=== PATIENT | female | born 1995 | race Caucasian/White ===

== ENCOUNTER 2023-07-02 06:07 | Inpatient (IN) | payer BC, SELFPAY ==
[2023-07-02] VITALS (41 sets, daily range): BP systolic 102–161; BP diastolic 53–129; PULSE 66–117; RESP 14–21; TEMP 36.2–37.1; O2SAT 95–100; BMI 32.5
[2023-07-02 06:43] LABS: Basophils Percent Auto 0.4 % (0.2-1.2); Eosinophils Absolute Auto 0.1 K/mm3 (0-0.3); Eosinophils Percent Auto 1.2 % (0-4.4); Hematocrit 38.2 % (37.0-47.0); Hemoglobin 11.8 g/dL (12.0-15.0); Immature Granulocyte Absolute 0.03 K/mm3 (0.00-0.031); Immature Granulocyte Percent A 0.3 % (0-0.5); Lymphocytes Absolute Auto 2.31 K/mm3 (0.9-3.2); Lymphocytes Percent Auto 24.5 % (18.3-44.2); Mean Corpuscular HGB Conc 30.9 g/dl (32-36); Mean Corpuscular Hemoglobin 26.2 pg (26-34); Mean Corpuscular Volume 84.7 fl (80-100); Mean Platelet Volume 10.7 fl (7.4-10.4); Monocytes Percent Auto 10.1 % (2.6-8.5); Neutrophils Percent Auto 63.5 % (45.5-73.1); Platelet Count Result 252 k/mm3 (150-375); Red Blood Count 4.51 M/mm3 (4.2-5.4); Red Cell Distribution Width 13.5 % (11.5-14.5); White Blood Count 9.4 K/mm3 (4.5-10.0)
[2023-07-02] MEDS: LACTATED RINGERS 1,000 ML 125 ML IV CONT (06:51)
--- NOTE | 2023-07-02 06:53 | ADMGEN ---
This patient, Saundra Petty, was admitted to Labor/Delivery/Recovery 120-00. Patient/family oriented to hospital policies and general routines including ID bracelet, bed and alarms, visiting hours, pain management, procedures, bathroom and other care routines, personal items, smoking policy, room service/diet, and visiting hours. Information on how to activate the Rapid Response Team has been discussed. Patient/Family are encouraged to report perceived risks to care and to ask questions if they do not understand what they are told or what they should do.
--- NOTE | 2023-07-02 07:17 | WPDANESEPPF ---
Anes - Initial Pre Proc Eval Procedure: Operation Date: 07/02/23 07:30 Proposed Procedures p Primary Section - Shraddha Richardson MD Date/Time: 07/02/23 07:17 Surgeon: Shraddha Richardson MD Pre Op Diagnosis: Induction of Labor Patient Data Age: 28 Gender: F Height: 1.63 m Weight: 86 kg Last Vital Signs Temp 36.3 C L 07/02/23 07:09 Pulse 93 07/02/23 07:16 BP 118/80 07/02/23 07:16 O2 Del Method Room Air 07/01/23 20:00 Allergies Allergy/AdvReac Type Severity Reaction Status Date / Time No Known Allergies Allergy Verified 07/02/23 06:49 Home Medications Medication Instructions Recorded Confirmed Type fiber 1 cap PO DAILY 06/10/23 07/02/23 History levothyroxine 25 mcg tablet 25 mcg PO DAILY 06/10/23 07/02/23 History prenat.vits,kerri,isy-[id number]-szuec 1 tablet PO DAILY 06/10/23 07/02/23 History Laboratory Tests 07/02/23 06:39 WBC 9.4 K/mm3 (4.5-10.0) RBC 4.51 M/mm3 (4.2-5.4) Hgb 11.8 L g/dL (12.0-15.0) Hct 38.2 % (37.0-47.0) MCV 84.7 fl (80-100) MCH 26.2 pg (26-34) MCHC 30.9 L g/dl (32-36) RDW 13.5 % (11.5-14.5) Plt Count 252 k/mm3 (150-375) MPV 10.7 H fl (7.4-10.4) Immature Gran % (Auto) 0.3 % (0-0.5) Neut % (Auto) 63.5 % (45.5-73.1) Lymph % (Auto) 24.5 % (18.3-44.2) [place] % (Auto) 10.1 H % (2.6-8.5) Eos % (Auto) 1.2 % (0-4.4) Baso % (Auto) 0.4 % (0.2-1.2) Lymph # (Auto) 2.31 K/mm3 (0.9-3.2) [place] # (Auto) 1.0 H K/mm3 (0.1-0.6) Eos # (Auto) 0.1 K/mm3 (0-0.3) Baso # (Auto) 0.0 K/mm3 (0.0-0.1) Abs Immat Gran (auto) 0.03 K/mm3 (0.00-0.031) Absolute Neuts (auto) 6.0 K/mm3 (1.3-6.7) Absolute Nucleated RBC 0.0 K/mm3 (0.0-0.012) Nucleated RBC % 0.0 % (0.0-0.2) RPR Pending Patient hx anesthesia problems: none Family hx anesthesia problems: none Results Review: All pre-operative results and documents have been reviewed as part of the pre-operative evaluation. [facility] Past Medical History Medical History (Updated 07/02/23 @ 07:17 by Matti Elliott MD) Breech presentation Family History Family History Grandparent Family history of lung cancer Other Family history of malignant neoplasm of breast Family history of sleep apnea Social History Social History Smoking status: Never smoker Second hand tobacco smoke exposure: Yes Alcohol intake: never Substance use: never Lack of Transportation: No Lack of Food: Never True Current Housing: I Have Housing Concerned About Future Housing: No Difficulty Paying Gas/Electric Bills: No Difficulty Paying for Meds: No Currently Unemployed: No Education: Master's Degree or Higher Difficulty w/ Childcare or Family Care: No Spiritual care concerns: No Anes - Eval Final PreProcedure Day of Procedure 07/02/23 07:17 Patient weight: overweight Heart: regular rate and rhythm Lungs: clear to auscultation Airway: Mallampati scale class II Neurological: alert and oriented Last oral intake: >/= 8 hours ASA classification: II Emergent: no Anesthetic plan: proceed Anesthesia type and monitoring: regional spinal and standard monitoring Results Review: All pre-operative results and documents have been reviewed as part of the pre-operative evaluation. Informed Consent: The patient's anesthetic plan and its attendant risks and benefits were discussed with the patient/family/POA. Questions were solicited and answers provided to the satisfaction of the patient/family/POA.
[2023-07-02] MEDS: ceFAZolin 2 GM/D5W 50 ML 2 GM/50 ML BAG IVPB (08:02)
--- NOTE | 2023-07-02 08:02 | PM.IMHP ---
H&P: HPI History of Present Illness Date/Time: 07/02/23 08:02 Chief Complaint: Term Narrative: 28-year-old primipara at term with a Fetus in the breech presentation. We have agreed to perform delivery. She understands risks. She understands that injuries may occur over the result in hospitalization, more severe and severe illness. She understands risk infection. She denies any nausea, vomiting, fever, chills. She denies any chest pain or shortness of breath was denies any current contractions or loss of fluid. Review of Systems Review of Systems: All systems reviewed & are unremarkable except as noted in HPI and below Constitutional: Constitutional: Denies chills, Denies fatigue, Denies fever(s) and Denies weakness Eyes: Eyes: Denies blurry vision, Denies change in vision, Denies loss of peripheral vision, Denies loss of vision, Denies other visual disturbances and Denies eye pain ENT: Denies vertigo, Denies dizziness, Denies hearing loss, Denies mouth pain, Denies nasal obstruction, Denies neck mass and Denies neck pain Cardiovascular: Cardiovascular: Denies chest pain, Denies diaphoresis, Denies syncope, Denies leg edema and Denies dyspnea Respiratory: Respiratory: Denies chest congestion, Denies cough, Denies hemoptysis, Denies dyspnea and Denies wheezing Gastrointestinal: Gastrointestinal: Denies abdominal pain, Denies constipation, Denies diarrhea, Denies nausea and Denies vomiting Genitourinary: Genitourinary: Denies hematuria, Denies change in libido, Denies nocturia, Denies genital lesions, Denies flank pain and Denies urinary urgency Musculoskeletal: Musculoskeletal: Denies abnormal gait, Denies back pain, Denies myalgias, Denies arthralgias, Denies joint swelling, Denies muscle weakness and Denies neck pain Integumentary/Breasts: Skin/Breast: Denies swelling, Denies breast pain, Denies breast mass, Denies dry skin, Denies nipple discharge, Denies unusual bruising and Denies jaundice Neurologic: Denies Neuro-related abnormal movements, Denies Abnormal speech present, Denies abnormal gait, Denies behavioral changes, Denies confusion, Denies vertigo, Denies dizziness, Denies syncope, Denies loss of vision, Denies memory loss, Denies convulsions and Denies weakness Psychiatric: Psychiatric: Denies abnormal sleep pattern, Denies behavioral changes, Denies change in libido, Denies confusion, Denies depression, Denies anhedonia and Denies memory loss Endocrine: Endocrine: Reports no additional endocrine complaints, Denies change in libido and Denies fatigue Hematologic/Lymphatic: Hematologic/Lymphatic: Reports no additional hematologic/lymphatic complaints Allergic/Immunologic: Allergic/Immunologic: Reports no additional allergic/immunologic complaints and Denies wheezing PMFSH Past Medical History Medical History (Updated 07/02/23 @ 08:05 by Shraddha Richardson MD) Breech presentation Family History Family History Grandparent Family history of lung cancer Other Family history of malignant neoplasm of breast Family history of sleep apnea Social History Social History Smoking status: Never smoker Second hand tobacco smoke exposure: Yes Alcohol intake: never Substance use: never Lack of Transportation: No Lack of Food: Never True Current Housing: I Have Housing Concerned About Future Housing: No Difficulty Paying Gas/Electric Bills: No Difficulty Paying for Meds: No Currently Unemployed: No Education: Master's Degree or Higher Difficulty w/ Childcare or Family Care: No Spiritual care concerns: No Meds Home Medications and Allergies Home Medications Medication Instructions Recorded Confirmed Type fiber 1 cap PO DAILY 06/10/23 07/02/23 History levothyroxine 25 mcg tablet 25 mcg PO DAILY 06/10/23 07/02/23 History prenat.vits,kerri,bll-ecyd-dhqfg 1 tablet
--- NOTE | 2023-07-02 08:05 | WPDHPUPDATE1 ---
History and Physical Update Update Date/Time: 07/02/23 08:05 History and Physical has been reviewed, including an updated exam of the patient. There are NO changes in the patient's condition. Risks, benefits, and alternatives have been discussed and questions answered. Patient agrees to proceed with procedure.
[2023-07-02] MEDS: KETOROLAC 30 MG/ML VIAL (*BKC) IV PUSH ×2 (08:33→18:45)
--- NOTE | 2023-07-02 09:26 | W.PM.PROC2 ---
Procedure Note - Detailed Date of Procedure 07/02/23 Pre-op Diagnosis Breech presentation, term Post-op Diagnosis Same Procedure Performed Low-transverse section Surgeon Shraddha Richardson MD Anesthesia Spinal Indications breech presentation Findings Normal gestational maternal anatomy, average size , normal Apgars. Description of Procedure The patient was taken the operating room. She was prepped and draped in dorsal supine position with a leftward tilt. This was done after spinal anesthetic was applied. A low-transverse skin incision was made and carried down till of the fascia with the knife. The fascial incision was made with the knife. The fascial incision was extended laterally with Lopez scissors. The fascia was tented upward superiorly and inferiorly the rectus muscles were dissected off bluntly. The rectus muscles were the midline. The preperitoneal fat and peritoneum were dissected open bluntly at the superior aspect of the rectus muscles. The peritoneal incision was extended superior and inferior with good position of bladder. The uterine incision was made with a scalpel down to the level of the amniotic cavity. The amniotic cavity was entered bluntly. The infant was delivered. The cord was clamped and cut and the was handed off to waiting pediatric staff. Cord bloods were obtained. The placenta was removed manually. The uterus was exteriorized. The uterus was cleared of all clots, debris and membranes. The uterus was closed in 0 Vicryl running lock fashion. An imbricating over a was placed along the incision line as well. The uterus was returned to the abdomen. The gutters were cleared of all clots and debris. The fascia was closed with 0 Vicryl running fashion. The subcutaneous tissue was irrigated pinpoint bleeders were cauterized. The skin was closed with subcuticular absorbable cami. The skin incision line was covered with glue. The patient tolerated the procedure well. She has taken recovery room in stable condition. Sponge lap and needle counts were correct x2. Estimated Blood Loss -475.0 Urine Output -100.0 Complications No immediate complications Condition Stable Disposition PACU
[2023-07-02] MEDS: OXYTOCIN 30 UNITS/NS 500 ML 30 UNITS/500 ML BAG 125 UNITS IV CONT (10:30)
--- NOTE | 2023-07-02 12:27 | PC.NURSE ---
1115- Attempted to call report to unit. No beds available on unit at this time. Patient is resting comfortably.No signs of PP hemorrhage. Tolerating fluid intake well. Will continue to monitor on current unit until bed becomes available.
--- NOTE | 2023-07-02 12:58 | PC.NURSE ---
Patient transferred to post room #287 via (stretcher ). Support person present. Oriented to unit, room, information board, rooming in, admission packet and security measures. Patient verbalizes understanding.
[2023-07-02] MEDS: DOCUSATE SODIUM 100 MG CAPSULE PO (14:12)
[2023-07-02] MEDS: HYDROcodone/acetaminophen (*CRX) 5-325 MG TABLET 1 TAB PO (14:12)
[2023-07-02 14:19] LABS: Rapid Plasma Reagin Non-Reactive (NonReactive)
[2023-07-02] MEDS: DEXTROSE 5%/0.45% SOD CHL 1,000 ML 125 ML IV CONT (15:48)
[2023-07-02] MEDS: IBUPROFEN 600 MG TABLET PO (18:46)
[2023-07-03] MEDS: HYDROcodone/acetaminophen (*CRX) 10-325 MG TABLET 1 TAB PO ×4 (05:13→19:06)
[2023-07-03] MEDS: IBUPROFEN 600 MG TABLET PO ×2 (05:13→14:53)
[2023-07-03 05:14] LABS: Basophils Percent Auto 0.3 % (0.2-1.2); Eosinophils Absolute Auto 0.1 K/mm3 (0-0.3); Eosinophils Percent Auto 0.8 % (0-4.4); Hemoglobin 9.2 g/dL (12.0-15.0); Immature Granulocyte Absolute 0.08 K/mm3 (0.00-0.031); Immature Granulocyte Percent A 0.7 % (0-0.5); Lymphocytes Absolute Auto 2.49 K/mm3 (0.9-3.2); Lymphocytes Percent Auto 20.3 % (18.3-44.2); Mean Corpuscular HGB Conc 30.7 g/dl (32-36); Mean Corpuscular Hemoglobin 26.6 pg (26-34); Mean Corpuscular Volume 86.7 fl (80-100); Mean Platelet Volume 10.9 fl (7.4-10.4); Monocytes Absolute Auto 1.2 K/mm3 (0.1-0.6); Monocytes Percent Auto 9.7 % (2.6-8.5); Neutrophils Absolute Auto 8.4 K/mm3 (1.3-6.7); Neutrophils Percent Auto 68.2 % (45.5-73.1); Platelet Count Result 187 k/mm3 (150-375); Red Blood Count 3.46 M/mm3 (4.2-5.4); Red Cell Distribution Width 13.7 % (11.5-14.5); White Blood Count 12.3 K/mm3 (4.5-10.0)
[2023-07-03] MEDS: LEVOTHYROXINE SODIUM 25 MCG TABLET PO (06:57)
[2023-07-03 07:05] VITALS: BP 107/64; PULSE 96; RESP 16; TEMP 36.4; O2SAT 97
--- NOTE | 2023-07-03 08:39 | WPDANLDPN2 ---
Anes-Prog Note L&D Date/Time: 07/03/23 08:39 Comfortable throughout: section Neuraxial method: spinal Epidural/Spinal procedure site: clean & non-tender Neuro status: Neuro function grossly intact. Cardiovascular status: normal Respiratory status: normal Airway patency: baseline Mental status: baseline Post-Op hydration status: normal Vital Signs: Last Vital Signs Temp 36.4 C 07/03/23 07:05 Pulse 96 07/03/23 07:05 Resp 16 07/03/23 07:05 BP 107/64 07/03/23 07:05 Pulse Ox 97 07/03/23 07:05 O2 Del Method Room Air 07/03/23 07:05 Pain score (VAS): 3 I/O: Intake & Output 07/02/23 07/03/23 07/03/23 23:59 07:59 15:59 Intake Total 1000 100 Output Total 1550 825 Balance -550 -725 Post-procedural complaints: none Patient feedback: Patient satisfied with anesthetic care.
--- NOTE | 2023-07-03 08:40 | WPDANLDNPN2 ---
Anes-Prog Note L&D-Neuraxial Date/Time: 07/03/23 08:40 Opiod-related complaints: none Patient feedback: Patient satisfied with post-operative pain management.
--- NOTE | 2023-07-03 08:41 | P.PNOB_ITS ---
OB - PN: Subj Subjective Date/time seen: 07/03/23 08:41 Interval history: POD#1 s/p PLTCS for breech Doing well, passing flatus No nausea or vomiting Awaiting spontaneous void OB - PN: Obj Data Labs 07/03/23 04:58 Labs: Laboratory Results - last 24 hr 07/02/23 07/03/23 06:39 04:58 WBC 12.3 H RBC 3.46 L Hgb 9.2 L Hct 30.0 L MCV 86.7 MCH 26.6 MCHC 30.7 L RDW 13.7 Plt Count 187 MPV 10.9 H Immature Gran % (Auto) 0.7 H Neut % (Auto) 68.2 Lymph % (Auto) 20.3 [place] % (Auto) 9.7 H Eos % (Auto) 0.8 Baso % (Auto) 0.3 Lymph # (Auto) 2.49 [place] # (Auto) 1.2 H Eos # (Auto) 0.1 Baso # (Auto) 0.0 Abs Immat Gran (auto) 0.08 H Absolute Neuts (auto) 8.4 H Absolute Nucleated RBC 0.0 Nucleated RBC % 0.0 RPR Non-reactive OB - PN A/P Plan day: 1 Plan: routine care Time Spent With Patient Time: Total time spent is greater than 50% in coordination of care (as documented) at patient's floor/unit and/or counseling patient: Review of Systems Review of Systems: All systems reviewed & are unremarkable except as noted in HPI and below Exam Const: General: comfortable, no acute distress and alert Resp: Effort & Inspection: normal respiratory effort GI: GI Palp: Yes Soft to palpation Other: incision c/d/i
[2023-07-03] MEDS: POLYSACCHARIDE IRON COMPLEX 150 MG CAPSULE PO ×2 (11:05→17:04)
[2023-07-03] MEDS: DOCUSATE SODIUM 100 MG CAPSULE PO ×2 (11:06→17:04)
[2023-07-03 18:45] VITALS: BP 121/78; PULSE 79; RESP 16; TEMP 36.7; O2SAT 99
[2023-07-03] MEDS: SIMETHICONE 80 MG TAB.CHEW PO ×2 (19:05→22:06)
[2023-07-03] MEDS: HYDROcodone/acetaminophen (*CRX) 5-325 MG TABLET 1 TAB PO (22:06)
[2023-07-04] MEDS: SIMETHICONE 80 MG TAB.CHEW PO ×4 (01:22→22:40)
[2023-07-04] MEDS: HYDROcodone/acetaminophen (*CRX) 5-325 MG TABLET 1 TAB PO ×6 (01:22→21:00)
[2023-07-04] MEDS: IBUPROFEN 600 MG TABLET PO ×4 (01:22→22:40)
--- NOTE | 2023-07-04 07:58 | PM.OBPNVD ---
OB - PN: Subj Subjective Date/time seen: 07/04/23 07:58 Interval history: POD#2 s/p PLTCS for breech Doing well, passing flatus No nausea or vomiting Voiding without issue Minimal serosanguinous discharge from incision Desired d/c home tomorrow OB - PN: Obj Data Labs 07/03/23 04:58 OB - PN A/P Plan day: 2 Plan: routine care Time Spent With Patient Time: Total time spent is greater than 50% in coordination of care (as documented) at patient's floor/unit and/or counseling patient: Review of Systems Review of Systems: All systems reviewed & are unremarkable except as noted in HPI and below Exam Const: General: comfortable, no acute distress, alert and awake Orientation/consciousness: patient oriented x3 Resp: Effort & Inspection: normal respiratory effort GI: GI Palp: Yes Soft to palpation Other: incision c/d/i, no drainage expressed
[2023-07-04 08:00] VITALS: BP 114/80; PULSE 86; RESP 16; TEMP 36.6; O2SAT 98
[2023-07-04] MEDS: LEVOTHYROXINE SODIUM 25 MCG TABLET PO (08:03)
[2023-07-04] MEDS: POLYSACCHARIDE IRON COMPLEX 150 MG CAPSULE PO ×2 (11:57→15:45)
[2023-07-04] MEDS: DOCUSATE SODIUM 100 MG CAPSULE PO ×2 (11:57→15:45)
[2023-07-04 16:00] VITALS: BP 110/60; PULSE 80; PULSE 86; RESP 16; TEMP 36.8; O2SAT 100; O2SAT 98
[2023-07-04] MEDS: HYDROCORTISONE 1% 30 GM OINTMENT 1 APPLIC TOPICAL (17:45)
[2023-07-04 21:05] VITALS: BP 115/77; PULSE 93; RESP 16; TEMP 36.6; O2SAT 99
[2023-07-05] MEDS: HYDROcodone/acetaminophen (*CRX) 5-325 MG TABLET 1 TAB PO ×3 (02:12→09:40)
[2023-07-05] MEDS: SIMETHICONE 80 MG TAB.CHEW PO ×2 (02:12→05:57)
--- NOTE | 2023-07-05 04:28 | PC.NURSE ---
07/04/2023 at 2230 Patient viewed the discharge video Mother & Baby Care, The First Two Weeks . Patient was given the opportunity and encouraged to ask questions. Patient verbalized understanding of information shared and has been given the mother/baby guide for home reference.
[2023-07-05] MEDS: IBUPROFEN 600 MG TABLET PO (05:57)
[2023-07-05 07:25] VITALS: BP 103/59; PULSE 85; RESP 16; TEMP 36.8; O2SAT 98
--- NOTE | 2023-07-05 07:54 | PM.OBPNVD ---
OB - PN: Subj Subjective Date/time seen: 07/05/23 07:54 Interval history: POD#3 s/p PLTCS for breech Doing well, passing flatus No nausea or vomiting Voiding without issue Minimal serosanguinous discharge from incision Desired d/c home today OB - PN: Obj Data Labs 07/03/23 04:58 OB - PN A/P Plan day: 3 Plan: routine care and discharge home Time Spent With Patient Time: Total time spent is greater than 50% in coordination of care (as documented) at patient's floor/unit and/or counseling patient: Review of Systems Review of Systems: All systems reviewed & are unremarkable except as noted in HPI and below Exam Const: General: cooperative, healthy appearing and comfortable Chest: Chest palpation & inspection: normal inspection of the chest Resp: Effort & Inspection: normal respiratory effort Cardio: Rate: regular rate Rhythm: regular rhythm Skin: General skin exam: normal color Psych: Appearance: grossly normal
--- NOTE | 2023-07-05 07:56 | PM.OBDSVD ---
DS: Admitting Diagnosis Discharge Date 07/05/23 Admitting Diagnosis primary DS: Discharge Diagnosis Discharge Diagnosis (1) Post-op pain: Code(s): G89.18 - Other acute postprocedural pain Status: Acute (2) Delivery by section: Status: Acute OB - DS: Summary OB Procedures : None OB Procedures Intrapartum: OB Procedures: : None Peripartum Data Procedures: Procedures Operation Date: 07/02/23 07:30 Actual Procedure Side Surgeon p Primary Section Shraddha Richardson MD Time Spent with Patient Time attestation: Total time spent providing and/or coordinating discharge services: Discharge Plan Discharge Attending physician on discharge: Huber Flores Discharging Clinician: Delia Godoy Patient Disposition: Home, Self-Care Activity: pelvic rest Diet: regular Patient Instructions: Antibiotic Form Stand Alone Forms: General Discharge Information Follow-up/Referrals: Shraddha Richardson MD [Physician] - 1 Week Discharge Medications: New hydrocodone-acetaminophen 5-325 mg Tablet 1 tablet PO Q3H PRN (Reason: Moderate Pain (4-6)) Qty: 20 0RF Continued levothyroxine 25 mcg Tablet 25 mcg PO DAILY fiber Capsule 1 cap PO DAILY #2 Tablet 1 tablet PO DAILY Date of admission: 07/02/23 06:07 Primary Care Provider: UNKNOWN,DOCTOR Admitting Provider: Shraddha Richardson Attending physician on admission: Shraddha Richardson Condition: Stable
[2023-07-05] MEDS: POLYSACCHARIDE IRON COMPLEX 150 MG CAPSULE PO (09:27)
[2023-07-05] MEDS: DOCUSATE SODIUM 100 MG CAPSULE PO (09:28)
[2023-07-06 11:14] VITALS: BP 125/77; PULSE 100; RESP 18; TEMP 36.8; O2SAT 100
== END 2023-07-05 12:12 | disposition home or self-care (01) | DRG 788 ==
LOC: ANHLDR 06:12 → ANHOB2 15:41
PROVIDERS: Admitting Provider Obstetrics & Gynecology; Visit Provider Obstetrics & Gynecology
PROC: 10D00Z1 Extraction of Products of Conception, Low, Open Approach (ICD-10-PCS; CPT 59514; principal; 2023-07-02 07:30)
DX: O32.1XX0 Maternal care for breech presentation, not applicable or unspecified (principal); Z3A.39 39 weeks gestation of pregnancy; Z37.0 Single live birth
CPT/HCPCS: 36415; 85025; 86592; 86850; 86900; 86901; A9270; J0690; J1885; J2274; J2590; J7120